=== PATIENT | female | born 1940 | race Caucasian/White ===

== ENCOUNTER 2017-03-17 09:12 | Day surgery (SDC) | payer MEDICARE, BC ==
[2017-03-17] MEDS ORDERED: MIDAZOLAM 1 MG/ML 2 ML INJ (11:12)
[2017-03-17] MEDS ORDERED: ROPIVACAINE 0.5 % 30 ML VIAL (11:13)
[2017-03-17] MEDS ORDERED: THROMBIN 5000 UNIT VIAL (11:25)
[2017-03-17] MEDS ORDERED: CA CHLORIDE 10% 10 ML SYRINGE (11:25)
[2017-03-17] MEDS ORDERED: POLYMYXIN/BACITRACIN 1L IRRIG (11:25)
[2017-03-17] MEDS ORDERED: PROPOFOL 20 ML (11:37)
[2017-03-17] MEDS ORDERED: FENTAnyl 50 MCG/ML VIAL (11:37)
[2017-03-17] MEDS ORDERED: CEFAZOLIN 1 GM INJ (11:54)
[2017-03-17] MEDS ORDERED: FAMOTIDINE 20 MG INJ (11:58)
[2017-03-17] MEDS ORDERED: ONDANSETRON 4 MG INJ (11:58)
[2017-03-17] MEDS ORDERED: DEXAMETHASONE 4 MG/ML 1 ML INJ (11:58)
[2017-03-17] MEDS: ROPIVACAINE 0.5 % 30 ML VIAL (12:32)
[2017-03-17] MEDS: METHYLENE BLUE 1% 10 ML INJ (13:00)
[2017-03-17] MEDS ORDERED: EPHEDrine SULFATE 50 MG/5 ML SYG (14:15)
[2017-03-17] MEDS: POVIDONE IODINE 10% 28.4 GM OINT (14:22)
[2017-03-17] MEDS ORDERED: SOD CHLORIDE 0.9% 1,000 ML IV (14:35)
[2017-03-17] MEDS ORDERED: ONDANSETRON 4 MG INJ IV ×2 (15:00)
[2017-03-17] MEDS ORDERED: hydrALAzine 20 MG INJ IV (15:00)
[2017-03-17] MEDS ORDERED: HYDROmorphONE (0.2 MG/ML) 10ML SYG IV (15:00)
[2017-03-17] MEDS ORDERED: FENTAnyl 50 MCG/ML VIAL IV (15:00)
[2017-03-17] MEDS ORDERED: morphine 2 MG INJ IV (15:00)
[2017-03-17] MEDS ORDERED: LABETALOL HCL 20MG INJ IV (15:00)
[2017-03-17] MEDS ORDERED: DIPHENHYDRAMINE 50 MG INJ IV (15:00)
[2017-03-17] MEDS ORDERED: OXYCODONE/ACETAMINOPHEN (5/325) TAB PO ×3 (15:00)
== END 2017-03-17 17:05 | disposition home or self-care (01) ==
LOC: SDS 09:12
DX: M20.11 Hallux valgus (acquired), right foot (principal); M19.071 Primary osteoarthritis, right ankle and foot; K21.9 Gastro-esophageal reflux disease without esophagitis; E78.5 Hyperlipidemia, unspecified; I10 Essential (primary) hypertension
CPT/HCPCS: 28750; 73630